=== PATIENT | male | born 1955 | race Caucasian/White ===

== ENCOUNTER → 2018-05-05 09:48 | Outpatient (CLI) | payer BC, SELFPAY ==
[2018-05-05 11:38] LABS: Anion Gap 7.8 mmol/L (3-11); BUN 18 mg/dL (7-18); CO2 29.2 mmol/L (21.0-32.0); CREATININE 0.81 mg/dL (0.70-1.30); Calcium 8.7 mg/dL (8.5-10.1); Chloride 101 mmol/L (98-107); Cholesterol 227 mg/dL (50-200); Glucose 80 mg/dL (70-100); HDL Cholesterol 68 mg/dL (40-60); LDL CHOLESTEROL 150 mg/dL (<100); Potassium 5.3 mmol/L (3.5-5.1); Sodium 138 mmol/L (136-145); Triglyceride 67 mg/dL (30-150)
== END ==
PROVIDERS: PCP Family Medicine; Visit Provider Family Medicine
DX: Z00.00 Encounter for general adult medical examination without abnormal findings (principal); Z13.220 Encounter for screening for lipoid disorders; Z13.228 Encounter for screening for other metabolic disorders
CPT/HCPCS: 36415; 80048; 80061; 83721

== ENCOUNTER 2018-07-04 07:47 | Day surgery (SDC) | payer BC, SELFPAY ==
--- NOTE | 2018-07-04 06:10 | PDOC.DSDIS_ITS ---
Discharge Plan Disposition Patient Disposition: HOME Condition: Good Discharge Details Reason For Visit: Colonoscopy Attending Provider: Lakshmi Pike Primary Care Provider: Santosh Heaton Home Meds and New Rx's Prescriptions: Continue triamcinolone acetonide 15 GM cream 1 ea Topical BID Qty: 30 RF: 3 Discharge Instructions Instructions: Colonoscopy (DC), Colorectal Polyps (DC), Diverticulosis (DC) Additional Instructions: Findings: 25 polyps sigmoid diverticulosis Follow up: depends on final pathology New Medications: none Please call if you develop: fevers >101.5 Nausea or Vomiting Abdominal pain that is not transient 1. Because there will be medication in your system for the next 24 hours, you may feel a little sleepy. Your coordination will be affected. Therefore: a. Do not drive or operate dangerous equipment for 24 hours. b. Do not drink alcohol beverages for 24 hours (not even beer). c. Plan to go home and rest for the day. 2. Generally there are no restrictions on your activity after a day or so has gone by, but you may feel a bit fatigued for a few days. 3 After you arrive home you may have a light meal and return to a normal diet as you can tolerate it without feeling sick to your stomach. 4. After surgery, you may feel pain or discomfort. This should be only transient , but if it persists please contact your doctor. 5. If there are any questions regarding the findings of your procedure, please feel free to contact your doctor. 6. If you are unable to contact your doctor with a problem, contact the hospital at [phone]. 7. Continue all your regular medications unless directed otherwise. I understand the above instructions and have no questions. Signature of Patient or Responsible Adult Escort Date/Time Name of Responsible Adult Escort Signature of Nurse Date/Time Activity:: Activity as Tolerated Diet:: high fiber diet Discharge Orders Discharge Orders: Discharge Order (Routine); Ordered 07/04/18 Ordered By: Lakshmi Pike DS: Diagnosis Discharge Diagnosis (1) Diverticulosis large intestine w/o perforation or abscess w/o bleeding: Status: Acute (2) Colorectal polyp detected on colonoscopy: Status: Acute
--- NOTE | 2018-07-04 06:13 | W.COLOREPORT ---
Colonoscopy Report Date of procedure: 07/04/18 Pre-op diagnosis general: Colon Cancer Screening Post-op diagnosis procedure note: other (Sigmoid Diverticulosis/ 25 polyps from 15 cm to 3 cm) Procedure: Colonoscopy with polypectomy by hot snare and cold forceps Surgeon: Lakshmi Pike Anesthesia proc note operative: MAC (Chaitanya Argueta CRNA) Estimated blood loss (mL): 15 Pathology: other (25 polyps) Complications: None Disposition: same day Indications: Mr. Woodson is here today for a colonoscopy. Risks, benefits and complications were reviwed and he wished to proceed. No guarantees were given or implied. Prep: Miralax/Dulcolax Procedure Start Time: 08:40 Procedure End Time: 09:27 Retraction Time: 38 minutes Findings: Moderate diverticulosis of the sigmoid colon and 25 polyps from 2 to 15 cm. One pedunculated polyp at 10 cm. Procedure Description: After informed consent was obtained the patient was taken to the procedure room and placed in a left decubitous position. Monitors were applied and a time out was done. The patients name, date of , procedure, allergies to medications and metal in their body was reviewed. The patient was then sedated. Once sedated and comfortable a rectal exam was done. External exam was normal. Internal exam revealed a normal sphincter tone and no palpable masses. The prostate felt smooth. The scope was then introduced and retroflexed. No internal hemorrhoids were identified. The scope was then advanced to the cecum without difficulty. The TI and appendiceal orifice were identified. The prep was adequate. The scope was then slowly retracted over 38 minutes back into the rectum. 25 polyps were removed with cold forceps and hot snare. The scope was removed and the patient was woken up and taken back to Same day surgery in stable condition. The patient tolerated the procedure well and there were no immediate complications. Follow up: Follow up will depend on final pathology.
[2018-07-04 07:50] VITALS: BP 123/78; PULSE 60; RESP 17; TEMP 36.5; O2SAT 96
[2018-07-04] MEDS: Lactated Ringers 1,000 ML 80 ML IV (08:20)
--- NOTE | 2018-07-04 09:00 | BOWEL_PTH ---
PATIENT: John Woodson LOC: ANGI U#:[id number] AGE/SX: 63/M ROOM: RE07/04/[address]: Lakshmi Pike MD : 1955 BED: DIS: 07/04/2018 SPEC #: [id number] RECD: 07/04/18 12:41 STATUS: LYDIA REQ #: [id number] SHUBHAM: 07/04/18 09:[address]: Lakshmi Pike DEPT: Surgical Specimen RECD BY: Nori Garcia ENTERED: 07/04/18 12:43 SP TYPE: Bowel OTHR DR: Santosh Heaton MD Tissues: 1 - BIOPSY BOWEL 2 - BIOPSY BOWEL 3 - BIOPSY BOWEL Procedures: GROSS AND MICRO LEVEL 4 Comments: [id number]
[2018-07-04 09:59] VITALS: BP 125/78; PULSE 60; RESP 15; TEMP 36.1; O2SAT 98
== END 2018-07-04 10:15 | disposition home or self-care (01) ==
LOC: SUR 07:47
PROVIDERS: PCP Family Medicine; Visit Provider Surgery
PROC: 0DJD8ZZ Inspection of Lower Intestinal Tract, Via Natural or Artificial Opening Endoscopic (ICD-10-PCS; CPT 45378; principal; 2018-07-04 09:00)
DX: Z12.11 Encounter for screening for malignant neoplasm of colon (principal); D12.5 Benign neoplasm of sigmoid colon; D12.8 Benign neoplasm of rectum; K62.1 Rectal polyp; K57.30 Diverticulosis of large intestine without perforation or abscess without bleeding; Z86.010 Personal history of colon polyps
CPT/HCPCS: 45380; 45385; 88305; J2250; J3010

== ENCOUNTER 2019-05-11 10:09 | Outpatient (CLI) | payer BC, SELFPAY ==
--- NOTE | 2019-05-11 10:13 | DI.RAD_ITS ---
SYMPTOM/DIAGNOSIS: KNEE PAIN, M25.561 RIGHT KNEE: Three views. No priors. There is mild periarticular spurring of the posterior patella. The articular surfaces are otherwise well maintained. The bones are intact and normally mineralized. There is a moderate sized suprapatellar joint effusion. The soft tissues are otherwise unremarkable. IMPRESSION: Minimal arthritic changes of the right knee. Joint effusion. LEFT KNEE: Three views. There are no priors. The articular surfaces are well maintained. The bones are intact and normally mineralized. There is a small suprapatellar joint effusion. No radiopaque foreign bodies are seen in the soft tissues. IMPRESSION: No acute abnormality.
== END 2019-05-11 10:29 ==
PROVIDERS: PCP Family Medicine; Visit Provider Family Medicine
DX: M25.561 Pain in right knee (principal); M25.562 Pain in left knee; M25.461 Effusion, right knee; M25.462 Effusion, left knee; M17.11 Unilateral primary osteoarthritis, right knee
CPT/HCPCS: 73562

== ENCOUNTER 2021-05-21 16:29 | Outpatient (REF) | payer BC, SELFPAY ==
[2021-05-21 15:50] LABS: Hemoglobin A1C 5.5 % (<5.7)
[2021-05-21 15:54] LABS: Anion Gap 7.8 mmol/L (3-11); BUN 14 mg/dL (7-18); CO2 29.2 mmol/L (21.0-32.0); CREATININE 0.9 mg/dL (0.70-1.30); Calculated LDL 154 mg/dL (<100); Chloride 102 mmol/L (98-107); Cholesterol 222 mg/dL (<200); Glucose 98 mg/dL (74-106); HDL Cholesterol 58 mg/dL (40-60); Sodium 139 mmol/L (136-145); Triglyceride 53 mg/dL (<150)
[2021-05-21 23:29] LABS: PSA, Screening 4.2 ng/mL (0.0-4.5)
== END 2021-05-21 16:30 | disposition home or self-care (01) ==
LOC: LBN 16:29
PROVIDERS: PCP Nurse Practitioner Family; Visit Provider Nurse Practitioner Family
DX: E78.5 Hyperlipidemia, unspecified (principal); Z13.1 Encounter for screening for diabetes mellitus; Z12.5 Encounter for screening for malignant neoplasm of prostate; Z00.00 Encounter for general adult medical examination without abnormal findings
CPT/HCPCS: 80048; 80061; 84153; 83036

== ENCOUNTER 2022-03-19 09:13 | Day surgery (SDC) | payer BC, SELFPAY ==
--- NOTE | 2022-03-18 12:58 | W.COLOREPORT ---
Colonoscopy Report Date of procedure: 03/19/22 Pre-op diagnosis general: hx of mult TA. Villous at 10cm Post-op diagnosis procedure note: other (Colon polyps) Surgeon: Cally Ohara Anesthesia Type: General:No Airway Disposition: same day Prep: Miralax/Dulcolax Retraction Time: 30 Procedure Description: After informed consent was obtained the patient was taken to the procedure room and placed in a left decubitous position. Monitors were applied and a time out was done. The patients name, date of , procedure, allergies to medications and metal in their body was reviewed. The patient was then sedated. Once sedated and comfortable a rectal exam was done. External exam was normal. Internal exam revealed a normal sphincter tone and no palpable masses. The scope was then introduced and retrofelexed. No internal hemorrhoids were identified. The scope was then advanced to the cecum w/ moderte difficulty. The colon is very tortuos and spasmotic today. The TI and and appendiceal orifice were identified. He does have mult. polyps that are removed. There are x2 polyps at 80 cm. Both of these are 5 mm flat polyps and removed with cold biopsy forcep. There are 2 polyps at 70 cm. Both of these are 5 mm flat polyps and removed with a cold biopsy forcep. There are 3 polyps at 25 cm. these are all 5 mm , flat polyps and removed with cold biopsy forcep. There are 2 polyps in the rectum. Both of these are flat 5 mm polyps, and removed with a cold biopsy forcep. The prep was BBPS 2 in all segments for a total of 6. The scope was then slowly retracted over 30 minutes back into the rectum. All specimens are retrieved and no bleeding is noted. There were no diverticula visualized today. The scope was removed and the patient was woken up and taken back to Same day surgery in stable condition. The patient tolerated the procedure well and there were no immediate complications. Follow up: The patient should follow up in 3-5 years, path pending, unless they develop changes in bowel habits or other new gastrointestinal complaints.
--- NOTE | 2022-03-18 12:59 | PDOC.DSDIS_ITS ---
Discharge Plan Disposition Patient Disposition: HOME Condition: Good Discharge Details Reason For Visit: colon scope Attending Provider: Cally Ohara Primary Care Provider: Lidia Willard Home Meds and New Rx's Prescriptions: Continued triamcinolone acetonide 0.1 % cream 1 applic Topical BID PRNQty: 30 Rx Instructions: Apply to arms Discontinued bisacodyl [Dulcolax (bisacodyl)] 5 mg tablet,delayed release (DR/EC) 5 mg PO ONCE Qty: 4 0RF Rx Instructions: Take according to provider's instructions for colonoscopy prep. polyethylene glycol 3350 17 gram/dose powder 17 g PO ONCE Qty: 238 0RF Rx Instructions: To be taken as directed by prescriber's office for colonoscopy prep. Discharge Instructions Additional Instructions: DSU Colonoscopy Post- Op Instructions Instructions for Everyone who is given Anesthesia: For your safety, please do the following for the next twenty-four (24) hours: *Do Not operate a motor vehicle (car, truck, motorcycle, etc.) *Do Not drink alcoholic beverages or use any recreational drugs for the first 24 hours or while taking pain medications. The medications in your body may have a reaction that can be dangerous. *Do Not make any important decisions or sign any important papers. Findings: Follow up: 1. No lifting over 20 pounds or strenuous activity for the first 24 hours after your procedure. After 24 hours there are no restrictions on your activity but you may feel fatigued for a few days. 2. After you arrive home you may have a light meal and return to your normal diet as you can tolerate it without feeling sick to your stomach. 3. You may have a bloated, gaseous feeling in your belly (abdomen) after a colonoscopy. Passing gas and belching will help. Walking or lying down on your left side with your knees flexed may relieve the discomfort. Call the office at [phone] (Office) or [phone] (Hospital) right away if you notice any of the following: a.Vomiting of blood or ?coffee ground stools?. b.Rectal bleeding 1Tbsp, blood clots or continuous bleeding. c.Severe belly (abdominal) pain. d.A hard distended belly (abdomen) and an inability to pass gas. 4. Please don?t expect to have a normal BM (bowel movement) for 2-3 days after your procedure. 5. If there are questions regarding the findings of your procedure, please c ontact your doctor 6. If you are unable to contact your doctor with a problem, contact the hospital at [phone]. 7. Continue all your regular medications unless directed otherwise. I understand the above instructions and have no questions. Signature of Patient or Adult Escort Name of Responsible Adult Escort Signature of Nurse Date/Time Activity:: See above Diet:: See above Discharge Orders Discharge Orders: Discharge Order (Routine); Ordered 03/18/22 Ordered By: Cally Ohara
--- NOTE | 2022-03-18 13:01 | W.COLOREPORT ---
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 Monitors were applied and a time out was done. The patients name, date of , procedure, allergies to medications and metal in their body was reviewed. The patient was then sedated. Once sedated and comfortable a rectal exam was done. External exam was normal. Internal exam revealed a normal sphincter tone and no palpable masses. The prostate []. The scope was then introduced and retrofelexed. [] internal hemorrhoids were identified. The scope was then advanced to the cecum [] difficulty. The TI and appendiceal orifice were identified. The prep was []. The scope was then slowly retracted over [] minutes back into the rectum. Polyps were removed at []. The scope was removed and the patient was woken up and taken back to Same day surgery in stable condition. The patient tolerated the procedure well and there were no immediate complications. Follow up: The patient should follow up in [] years unless they develop changes in bowel habits or other new gastrointestinal complaints.
[2022-03-19] MEDS: Lactated Ringers 1,000 ML 80 ML IV (10:03)
--- NOTE | 2022-03-19 10:16 | W.ANESPRE ---
General Info Date of Service Date Performed: 03/19/22 Height: 6 ft Weight: 87 kg Body Mass Index (BMI): 25.9 Surgical Procedure: Operation Date: 03/19/22 10:05 Proposed Procedure Side Surgeon p Colonoscopy Cally Ohara DO Meds Allergies and Home Medications Allergies Allergy/AdvReac Type Severity Reaction Status Date / Time Penicillins Allergy Intermediate Swelling/Ed Verified 03/19/22 09:34 tressa Home Medication Medication Instructions Recorded triamcinolone acetonide 0.1 % 1 applic topical BID PRN #30 grams 05/11/19 topical cream multivitamin with minerals-folic 1 tab PO DAILY 03/19/22 acid 200 mcg chewable tablet (Multivitamin Gummies) Current Visit Medications: Current Medications Generic Name Dose Route Start Last Admin Trade Name Freq PRN Reason Stop Dose Admin Hyoscyamine Sulfate 0.125 mg 03/18/22 12:55 Hyoscyamine 0.125 Mg Sl/Oral/Chew SL DIRECTED PRN Ringer's Solution 1,000 mls @ 80 mls/hr 03/19/22 06:00 03/19/22 10:03 IV 04/17/22 23:59 80 mls/hr INFUSION JOSIAH Administration IV Miscellaneous Supplies 1 each 03/19/22 06:00 Iv Access IV 04/17/22 23:59 DIRECTED JOSIAH Ondansetron HCl 4 mg 03/18/22 12:55 Ondansetron 4 Mg/2 Ml Vial IVP Q4H PRN PRN Nausea / Vomiting Sodium Chloride 0 ml 03/19/22 06:00 Normal Saline Flush 10 Ml Syr IV 04/17/22 23:59 PRN PRN Sodium Chloride 0 ml 03/19/22 06:00 Normal Saline 10 Ml Vial IJ 04/17/22 23:59 DIRECTED PRN Sterile Water 0 ml 03/19/22 06:00 Water,Injection,Sterile 10 Ml Vial IJ 04/17/22 23:59 DIRECTED PRN PFSH Active Problems Active Problems: Problem Status Onset Code Screening for colon cancer Z12.11 Alcohol use disorder Medical History Medical History COPD (chronic obstructive pulmonary disease) Hyperlipidemia Osteoarthritis of both knees Sigmoid diverticulosis Surgical History Surgical History S/P colonoscopy (07/04/18) S/P vasectomy Tobacco Smoking/Tobacco Use Status: Former Tobacco Use Passive smoking exposure: Yes Second hand exposure: Yes Alcohol Alcohol Intake: current Alcohol intake frequency: 0-2 drinks per day Alcohol type: beer Substance Use Substance use: Rarely Substance use type: marijuana Vital Signs and Lab Results Lab Results Blood Type / Crossmatch: No Data to Display Complete Blood Count: No Data to Display Complete Metabolic Panel: No Data to Display Liver Function Panel: No Data to Display Coagulation Panel: No Data to Display Cardiac Panel: No Data to Display Arterial Blood Gas: No Data to Display Venous Blood Gas: No Data to Display Pancreas Panel: No Data to Display Thyroid Panel: No Data to Display Infectious Disease: No Data to Display Blood Cultures: No Data to Display Toxicology Panel: No Data to Display Anesthesia Assessment and Plan Anesthesia History Personal History: No History of Anesthesia Complications Family History: No Family History of Anesthesia Complications Exercise Tolerance Exercise Tolerance: Metabolic Equivalents>4 Pertinent Negatives Pertinent Negatives: No Symptoms of GERD, No Major Cardiovascular Symptoms or Complaints and No Major Pulmonary Symptoms or Complaints Cardiac & Pulmonary Exam Cardiac Exam: Normal S1/S2 Heart Sounds Pulmonary Exam: Clear Bilateral Breath Sounds Implantable Cardiac Device Does patient have a Pacemaker or an ICD?: No Airway Exam Known Difficult Airway: No Mallampati Class: 2 Mouth Opening: Normal (> 3cm) Thyromental Distance: Greater than 3 cm Neck Range of Motion: Full ROM Neck Circumference: Normal Teeth Condition: Normal Dentition ASA Classification ASA Score: ASA 2 Emergency Case?: No NPO Status NPO Status: NPO Clears >2 hours, Solids >8 hours Anesthesia Plan Resuscitation Status: Full Code Anesthesia Technique: General Anesthesia Airway Planned: Natural Airway Monitors Used: Standard Monitors
[2022-03-19 10:18] VITALS: BMI 25.9
--- NOTE | 2022-03-19 10:48 | BOWEL_PTH ---
PATIENT: John Woodson LOC: ANGI U#:[id number] AGE/SX: 66/M ROOM: RE03/19/[address]: Cally Ohara : 1955 BED: DIS: 03/19/2022 SPEC #: [id number] RECD: 03/19/22 13:01 STATUS: LYDIA RE #: [id number] SHUBHAM: 03/19/22 10:[address]: Cally Ohara DEPT: Surgical Specimen RECD BY: Crystal Rogers ENTERED: 03/19/22 13:09 SP TYPE: Bowel OTHR DR: Lidia Willard, [employer] Tissues: 1 - BIOPSY BOWEL 2 - BIOPSY BOWEL 3 - STOMACH BIOPSY 4 - STOMACH BIOPSY 5 - ESOPHAGUS BIOPSY 6 - ESOPHAGUS BIOPSY 7 - BIOPSY BOWEL 8 - BIOPSY BOWEL 9 - BIOPSY BOWEL 10 - BIOPSY BOWEL Procedures: GROSS AND MICRO LEVEL 4 Comments: [id number]
[2022-03-19 11:51] VITALS: BP 123/77; PULSE 55; RESP 16; TEMP 36.1; O2SAT 96
--- NOTE | 2022-03-19 11:53 | W.ANESPOSTOP ---
Postoperative Evaluation Date, Time and Location Date Performed: 03/19/22 Time Performed: 11:53 Patient Location: Day Surgery Unit Vital Signs Most Recent Imported Vital Signs: Most Recent Vital Signs Temp Pulse Resp BP Pulse Ox 36.1 C L 55 L 16 123/77 96 03/19/22 11:51 03/19/22 11:51 03/19/22 11:51 03/19/22 11:51 03/19/22 11:51 Pain Score Most Recent Pain Score: Most Recent Pain Score Pain Level 0 03/19/22 11:51 Assessment Mental Status: Awake (Alert & Oriented to Patient Baseline) Airway and Respiratory Function: Patent airway with normal (patient baseline) respiratory exam Cardiovascular Function: Hemodynamically Stable Hydration Status: Adequately Hydrated Nausea & Vomiting: No Nausea or Vomiting Pain: Pt. Denies Any Pain Peripheral Nerve Block: Patient did not receive a nerve block
--- NOTE | 2022-03-19 12:07 | PDOC.DSDIS_ITS ---
Discharge Plan Disposition Patient Disposition: HOME Condition: Good Discharge Details Reason For Visit: colon scope Attending Provider: Cally Ohara Primary Care Provider: Lidia Willard Home Meds and New Rx's Prescriptions: New pantoprazole [Protonix] 40 mg tablet,delayed release (DR/EC) 40 mg PO DAILY Qty: 90 4RF Continued triamcinolone acetonide 0.1 % cream 1 applic Topical BID PRNQty: 30 Rx Instructions: Apply to arms Discontinued bisacodyl [Dulcolax (bisacodyl)] 5 mg tablet,delayed release (DR/EC) 5 mg PO ONCE Qty: 4 0RF Rx Instructions: Take according to provider's instructions for colonoscopy prep. polyethylene glycol 3350 17 gram/dose powder 17 g PO ONCE Qty: 238 0RF Rx Instructions: To be taken as directed by prescriber's office for colonoscopy prep. No Action Multivitamin Gummies 200 mcg Tablet,Chewable 1 tab PO DAILY Discharge Instructions Instructions: Colorectal Polyps (GEN), Duodenitis (GEN) Additional Instructions: DSU Colonoscopy Post- Op Instructions Instructions for Everyone who is given Anesthesia: For your safety, please do the following for the next twenty-four (24) hours: *Do Not operate a motor vehicle (car, truck, motorcycle, etc.) *Do Not drink alcoholic beverages or use any recreational drugs for the first 24 hours or while taking pain medications. The medications in your body may have a reaction that can be dangerous. *Do Not make any important decisions or sign any important papers. Findings: duodenitis Rx: protonix Continue with lifestyle modifications: no alcohol, tobacco products, Aspirin or NSAID's (ibuprofen, Motrin, Naprosyn, aleve, etc), soda pop/any carbonated beverages, caffeine (including tea & chocolate), and acidic foods, (tomatoes, citrus, onions, peppermints) spicy or fried/fatty foods. Do not lie down for 30 minutes after eating, and do not eat 2 hours prior to bedtime. Avoid wearing tight fitting clothing/ belts. Try to limit caffeine/coffee intake for the next 2 weeks. Do not drink coffee on an empty stomach. -My office will send a letter in 2 to 3 weeks time with the results of the biopsies. colon polype Follow up: THREE yrs time 1. No lifting over 20 pounds or strenuous activity for the first 24 hours after your procedure. After 24 hours there are no restrictions on your activity but you may feel fatigued for a few days. 2. After you arrive home you may have a light meal and return to your normal diet as you can tolerate it without feeling sick to your stomach. 3. You may have a bloated, gaseous feeling in your belly (abdomen) after a colonoscopy. Passing gas and belching will help. Walking or lying down on your left side with your knees flexed may relieve the discomfort. Call the office at [phone] (Office) or [phone] (Hospital) right away if you notice any of the following: a.Vomiting of blood or ?coffee ground stools?. b.Rectal bleeding 1Tbsp, blood clots or continuous bleeding. c.Severe belly (abdominal) pain. d.A hard distended belly (abdomen) and an inability to pass gas. 4. Please don?t expect to have a normal BM (bowel movement) for 2-3 days after your procedure. 5. If there are questions regarding the findings of your procedure, please contact your doctor 6. If you are unable to contact your doctor with a problem, contact the hospital at [phone]. 7. Continue all your regular medications unless directed otherwise. I understand the above instructions and have no questions. Signature of Patient or Adult Escort Name of Responsible Adult Escort Signature of Nurse Date/Time Stand Alone Forms: Anesthesia Discharge Inst., Armando Caruso (DSU) Activity:: See above Diet:: See above Discharge Orders Discharge Orders: Discharge Order (Routine); Ordered 03/18/22 Ordered By: Cally Ohara
[2022-03-19 12:30] VITALS: BP 139/92; PULSE 55; RESP 16; TEMP 36.1; O2SAT 96
--- NOTE | 2022-03-19 21:51 | ENDO_ITS ---
Date of service: 03/19/22 Time of Service: 09:30 Endoscopy Report DATE OF PROCEDURE: 03/19/22 PRE-OP DIAGNOSIS: epigastric pain POST-OP DIAGNOSIS: other (duodenitis) SURGEON: Cally Ohara ANESTHESIA TYPE: General:No Airway ESTIMATED BLOOD LOSS: 0 PATHOLOGY: other COMPLICATIONS: None DISPOSITION: no change PROCEDURE DESCRIPTION: After informed consent was obtained the patient was take to the procedure room and placed in a supine position. Monitors were applied and a time out was done. The patients name, date of , procedure type, allergies to medications and metal in their body was reviewed. A bite block was placed and the patient was sedated. Once sedated and comfortable the gastroscope was advanced through the oropharynx which was grossly normal into the esophagus. The proximal and mid- esophagus were nl in the distal esophagus, there is no colon esophageal erosions, varices, diverticula, or stricture visualized today. There is no hiatal hernia. The scope was advanced into the stomach and through the pylorus into the 3rd portion of the duodenum. The duodenum was noted to be moderate erythema and erythema. Biopsies are taken of the bulb and D2. All specimens are retrieved and no bleeding is noted. The scope was retracted back into the stomach and biopsies were done to rule out H. pylori. There were no ulcers. The scope was retroflexed. The cardia and fundus were noted to be normal. There no hiatal hernia noted. The scope was retracted back into the esophagus and biopsies were done of the GE junction to rule out Durbin's. The Z line was regular. The GE junction was at 40 cm/in the distal esophagus at 38. Biopsy was taken from this area as well. The scope was removed and the patient was woken up and taken back to [facility] in stable condition. Follow up: Patient will be started on Protonix We reviewed lifestyle modifications Continue with lifestyle modifications: no alcohol, tobacco products, Aspirin or NSAID's (ibuprofen, Motrin, Naprosyn, aleve, etc), soda pop/any carbonated beverages, caffeine (including tea & chocolate), and acidic foods, (tomatoes, citrus, onions, peppermints) spicy or fried/fatty foods. Do not lie down for 30 minutes after eating, and do not eat 2 hours prior to bedtime. Avoid wearing tight fitting clothing/ belts My office will send a letter in 2 to 3 weeks time with the biopsy results
== END 2022-03-19 13:03 | disposition home or self-care (01) ==
PROVIDERS: PCP Nurse Practitioner Family; Visit Provider Surgery
PROC: 0DJD8ZZ Inspection of Lower Intestinal Tract, Via Natural or Artificial Opening Endoscopic (ICD-10-PCS; CPT 45378; principal; 2022-03-19 10:00)
DX: Z12.11 Encounter for screening for malignant neoplasm of colon (principal); Z86.010 Personal history of colon polyps; K63.5 Polyp of colon; K62.1 Rectal polyp; K29.80 Duodenitis without bleeding; K22.89 Other specified disease of esophagus; K31.89 Other diseases of stomach and duodenum; K63.89 Other specified diseases of intestine
CPT/HCPCS: 45380; 43239; 88305; J2704

== ENCOUNTER 2023-06-02 02:23 | Outpatient (CLI) | payer BC, SELFPAY ==
[2023-06-02 12:31] LABS: Hemoglobin A1C 5.4 % (<5.7)
[2023-06-02 12:32] LABS: Abs Immature Grans 0.02 10^3/uL (0.0-0.06); Absolute Basophil Count 0.12 10^3/uL (0.0-0.2); Absolute Eosinophil Count 0.26 10^3/uL (0.0-0.7); Absolute Lymphocyte Count 1.93 10^3/uL (1.2-3.4); Absolute Monocyte Count 0.85 10^3/uL (0.1-0.8); Absolute Neutrophil Count 4.83 10^3/uL (1.2-6.7); Basophils % 1.5; Eosinophils % 3.2; HCT 45.7 % (40.0-50.0); HGB 14.8 g/dL (13.5-17.5); Immature Grans % 0.2; Lymphocytes % 24.1; MCH 29.2 pg (27.0-33.0); MCHC 32.4 % (32.0-36.0); MCV 90 fL (80-95); MPV 10.2 fL (8.0-11.0); Monocytes % 10.6; Neutrophils % 60.4; Platelet Count 322 10^3/uL (130-400); RBC 5.07 10^6/uL (4.36-5.78); RDW 13.6 % (11.8-14.1); RDW-SD 45.1 fL; WBC 8.01 10^3/uL (4.4-10.8)
[2023-06-02 12:35] LABS: ALT 30 U/L (16-63); AST 15 U/L (15-37); Albumin 3.7 g/dL (3.4-5.0); Alkaline Phosphatase 70 U/L (46-116); BUN 19 mg/dL (7-18); Bilirubin, Total 0.5 mg/dL (0.2-1.0); Calcium 9.1 mg/dL (8.5-10.1); Chloride 101 mmol/L (98-107); Estimated GFR 83.01 (mL/min/1.73m2); Glucose 102 mg/dL (74-106); Potassium 4.3 mmol/L (3.5-5.1); Sodium 137 mmol/L (136-145); TSH (W/Ref FT4) 1.82 uIU/mL (0.36-3.74); Total Protein 7.8 g/dL (6.4-8.2)
[2023-06-02 19:39] LABS: PSA, Screening 4.9 ng/mL (<=4.5)
[2023-06-03 08:39] LABS: Hepatitis C Ab w Rflx HCV PCR Negative (Negative)
== END 2023-06-02 02:24 | disposition home or self-care (01) ==
LOC: LOS 02:23
PROVIDERS: PCP Nurse Practitioner Family; Visit Provider Nurse Practitioner Family
DX: Z00.00 Encounter for general adult medical examination without abnormal findings (principal); Z12.5 Encounter for screening for malignant neoplasm of prostate
CPT/HCPCS: 36415; 80053; 84153; 86803; 83036; 84443; 85025

== ENCOUNTER 2023-06-03 18:57 | Observation (INO) | payer BC, MEDICARE, SELFPAY ==
[2023-06-03] VITALS (16 sets, daily range): BP systolic 102–137; BP diastolic 63–88; PULSE 65–84; RESP 10–19; TEMP 36.6–37.2; O2SAT 93–97
--- NOTE | 2023-06-03 19:13 | ED.GENADUL_ITS ---
Discharge Plan Disposition Patient Disposition: Admit to [facility] Condition: Good Discharge Details Clinical Impression: Syncope, Face lacerations, Facial contusion Primary Care Provider: Lidia Willard ED Provider: Adryan Corcoran Meds and New Rx's Prescriptions: No Action Multivitamin Gummies 200 mcg Tablet,Chewable 1 tab PO DAILY Medical Decision Making Patient presents to ED status post syncopal event with facial injury. Patient was sitting on a chair and then found himself on the floor. He has no recollection of what exactly occurred. He sustained facial injury and lacerations. Denies feeling lightheaded, dizzy, short of breath, chest pain prior to the event. Has no real complaints other than facial pain and laceration now. Cervical spine is cleared clinically. EKG is sinus bradycardia otherwise normal. Given syncopal event without warning with significant injury consider cardiac arrhythmia. He is placed on the monitor. Will obtain CT head. Will obtain laboratory studies. Tetanus is updated. CT head is negative for acute traumatic injury. Lacerations are irrigated and explored. Sutured in interrupted fashion. Flap laceration tacked down loosely with good approximation. Laboratory studies fairly unremarkable with slightly elevated white count 12.7, normal hemoglobin, normal electrolytes and kidney function, alcohol level is 29. Do not believe his syncopal event was related to alcohol intoxication. He did smoke marijuana today as well but that is not uncommon. Still think overnight observation on a conveyor monitor is approp riate. Will discuss with hospitalist. Patient and aware of plan. Lab Data Lab results reviewed: Yes I reviewed the patient's lab results. ECG Data Attestation: I personally reviewed and interpreted this ECG (s) as follows: HPI General Mode of arrival: ambulatory . Date/Time Provider Initiated Documentation: 06/03/23 19:13 . Information obtained by: patient . HPI Narrative: Patient presents to ED after syncopal event with him striking his face against a chair. Patient reports sitting in a seat, next thing he knew he was waking up on the floor. Presumes he struck his face on a chair next to him. He reports no warning just waking up on the floor. He does admit to having 3 beers this afternoon between 3pm and 7pm. He reports elevated blood pressures as of recent. Denies any previous syncope. Denies any chest pain or shortness of breath. Does have lacerations to the left side of his face. He denies headache or neck pain. Denies any extremity pain or injury. Denies any nausea or vomiting. Related Data Home Medications Medication Instructions Recorded Confirmed multivitamin with minerals-folic 1 tab PO DAILY 03/19/22 06/03/23 acid 200 mcg chewable tablet (Multivitamin Gummies) Allergies Allergy/AdvReac Type Severity Reaction Status Date / Time Penicillins Allergy Intermediate Swelling/Ed Verified 06/03/23 19:14 tressa Review of Systems Narrative: Per HPI PFSH All Active Problems (Updated 06/03/23 @ 20:57 by Adryan Corcoran MD) Syncope (Chronic) Face lacerations (Acute) Facial contusion (Acute) Tubular adenoma of colon (Acute) Tubulovillous adenoma of colon (Acute) Osteoarthritis of both knees (Chronic) Alcohol use disorder (Chronic) Sigmoid diverticulosis (Chronic) Former cigarette smoker (Chronic) Chronic night sweats (Chronic) Elevated BP without diagnosis of hypertension (Chronic) Medical History COPD (chronic obstructive pulmonary disease) Hyperlipidemia Surgical History S/P colonoscopy (2021) S/P vasectomy Family History (Updated 05/30/23 @ 10:06 by Lidia Willard NP) Mother Stroke Father Testicular cancer Sister Breast cancer Sister Asthma Maternal Grandfather No problems noted. Paternal Grandfather No problems noted. Maternal Grandmother No problems noted. Paternal Grandmother No problems noted. Son No problems noted. Son No problems noted. Social History Smoking/Tobacco Use Status: Former Tobacco Use tobacco type: cigarettes Quit Date: 09/19/13 Pack-years: 40 Tobacco: How many years used: 40 Second Hand Exposure: Yes Smoking risk assessment performed?: Yes Alcohol Intake: current Alcohol Intake frequency: 0-2 drinks per day Alcohol type: beer Drug use: Rarely Substance use type: marijuana Household members: spouse Housing: house Communication Needs: Corrective Lenses Do you need help understanding health information?: Often Pets and animals: Yes Pets and animals: cat(s) and dog(s) Sexually active: Yes Do you think of yourself as: straight/heterosexual Current gender identity: male What is your relationship status?: How often do you talk on the phone with friends or family?: twice per week How often do you get together with friends or relatives?: twice per week Do you belong to any clubs or organized social groups?: no Panel score (0-1 are the most socially isolated patients): 2 What type of physical activity do you participate in: walking Duration: < 15 minutes/day Frequency: 5-6 times per week Alexandra/Alevism: No preference Special alexandra needs: No Seatbelt use: always Helmet use: No Drive intox or ride w/intox corrugated fastener driver: No Do you feel safe at home: Yes Do you feel safe in your relationship?: Yes Exam Narrative Exam Narrative: Const: WDWN male in NAD. HEENT: NC. 1 cm linear laceration lateral left eyebrow. 2.5 cm flap laceration to left upper cheek. No facial bony tenderness. Eyes: Normal lids. PERRL and EOMI. Neck: Supple. Trachea midline. No cervical spine tenderness. Lungs: Normal respiratory effort. Lungs are clear. Cor: RRR without murmur/gallop. Good radial pulses. GI: Soft. NT/ND. Neuro: A+O x 3. Normal speech, mentation, gait. Cranial nerves II - XII grossly intact. No gross motor or sensory deficit. Ext: No C/C/E. Skin: Warm and dry. Procedures Laceration Laceration 1: Site: face Side (If applicable): left Size (cm): 1 Description: linear Depth: simple, single layer Local Anesthetic: Lidocaine 1% and with Epi Amount of anesthesia used (mL): 1 Pre-repair: wound explored, irrigated extensively and deep structures intact Skin layer closed with: nylon Size (cm): 6-0 Number of sutures: 4 Technique: simple, interrupted Laceration 2: Site: face Side (If applicable): left Size (cm): 2.5 Description: flap Depth: simple, single layer Local Anesthetic: Lidocaine 1% and with Epi Amount of anesthesia used (mL): 2 Pre-repair: wound explored, irrigated extensively and deep structures intact Skin layer closed with: nylon Size (cm): 6-0 Number of sutures: 8 Technique: simple, interrupted
--- NOTE | 2023-06-03 19:15 | DI.CT_ITS ---
Exam(s) CT HEAD WO EXAM: CT HEAD WO CLINICAL HISTORY: syncope, head/face injury. TECHNIQUE: Imaging Protocol: Axial computed tomography images with coronal and sagittal reformatted images were created and reviewed COMPARISON: No exams were available for comparison FINDINGS: Ventricles and Extra axial spaces: Normal in size and morphology for the patient's age. Hemorrhage: None. Cerebral parenchyma: No evidence of acute infarct or mass. Midline shift: None. Brainstem/Cerebellum: Normal. Calvarium: Normal. Visualized Paranasal sinuses/Mastoids: Clear. Soft Tissues: Small area of soft tissue swelling in the scalp both the posterior fossa. IMPRESSION: No acute intracranial process. RADIATION DOSE DELIVERED: Total DLP DATA REPOSITORY: All CT scans at this facility are submitted to the National Radiology Data Registry (NRDR) Dose Index Registry (DIR) with the [employer] (ACR). RADIATION OPTIMIZATION: All CT scans at this facility use at least one of these dose optimization te chniques: automated exposure control; mA and/or kV adjustment per patient size (includes targeted exa ms where dose is matched to clinical indication); or iterative reconstruction.
--- NOTE | 2023-06-03 19:15 | RT.EKG_ITS ---
APPROVED REPORT Exam: Resting ECG Reason for Exam: syncope Patient Location: E HR:68 bpm ECG Measurements Heart Rate 68 AXIS OK 172 P 51 QRSd 103 QRS 27 QT 391 T 30 QTc 417 Conclusion Sinus rhythm...normal P axis, V-rate 60- 99 Normal [place] Normal Electrocardiogram
[2023-06-03 19:54] LABS: Abs Immature Grans 0.05 10^3/uL (0.0-0.06); Absolute Lymphocyte Count 1.28 10^3/uL (1.2-3.4); Basophils % 0.8; Eosinophils % 0.8; HGB 14.1 g/dL (13.5-17.5); Immature Grans % 0.4; Lymphocytes % 10.1; MCH 29.1 pg (27.0-33.0); MCHC 32.8 % (32.0-36.0); MCV 89 fL (80-95); MPV 9.2 fL (8.0-11.0); Monocytes % 9.6; Neutrophils % 78.3; Platelet Count 292 10^3/uL (130-400); RBC 4.85 10^6/uL (4.36-5.78); RDW 13.3 % (11.8-14.1); RDW-SD 43.7 fL; WBC 12.66 10^3/uL (4.4-10.8)
[2023-06-03 19:57] LABS: Absolute Monocyte Count 1.22 10^3/uL (0.1-0.8); Absolute Neutrophil Count 9.91 10^3/uL (1.2-6.7)
[2023-06-03 20:10] LABS: ALT 32 U/L (16-63); AST 18 U/L (15-37); Albumin 3.4 g/dL (3.4-5.0); Alkaline Phosphatase 74 U/L (46-116); Anion Gap 4.8 mmol/L (3-11); BUN 13 mg/dL (7-18); Bilirubin, Total 0.3 mg/dL (0.2-1.0); CO2 29.2 mmol/L (21.0-32.0); Calcium 8.8 mg/dL (8.5-10.1); Chloride 101 mmol/L (98-107); ETHANOL BLOOD 28.7 mg/dL (<10); Estimated GFR 83.01 (mL/min/1.73m2); Glucose 92 mg/dL (74-106); Magnesium 2.1 mg/dL (1.8-2.4); Sodium 135 mmol/L (136-145); Total Protein 7.4 g/dL (6.4-8.2)
--- NOTE | 2023-06-03 20:28 | DI.VRAD_ITS ---
PROCEDURE INFORMATION: Exam: CT Head Without Contrast Exam date and time: 06/03/2023 7:58 PM Age: 68 years old Clinical indication: Syncope and collapse; Patient HX: Syncope, head/face injury TECHNIQUE: Imaging protocol: Computed tomography of the head without contrast. COMPARISON: No relevant prior studies available. FINDINGS: Brain: Cerebrum is unremarkable. Bustamante-white matter differentiation is intact. No mass lesion is seen. No mass effect or midline shift. Thalamus is unremarkable. No evidence of hemorrhage. Cerebellum is unremarkable. No posterior fossa mass lesion or mass effect. No pathologic edema. No evidence of cerebellar hemorrhage. Cerebral ventricles: No ventriculomegaly. Paranasal sinuses: Visualized sinuses are unremarkable. No fluid levels. Mastoid air cells: Visualized mastoid air cells are well aerated. Bones/joints: No evidence of fracture. Soft tissues: Unremarkable. IMPRESSION: No evidence of fracture. No evidence of acute intracranial bleed. Dictated and Authenticated by: Melanie Parr MD. Ordering:FIDEL Cornelius MD
--- NOTE | 2023-06-03 21:18 | HPE_ITS ---
Date of service: 06/03/23 Time of Service: 21:18 Assessment and Plan Assessment and plan (1) Syncope: Start date: 06/03/23 Status: Acute Assessment and plan: This is a 68-year-old gentleman who had a syncopal episode while sitting in chair at home injuring his left face with lacerations and contusing his right chest wall. He does not have any focal rib pain over his chest wall and imaging of the ribs can be performed in the morning if needed. He has no history of dysrhythmia but recently has been measuring blood pressure with been slightly high with systolic measurements. He does drink beer most days. He has never had alcohol withdrawal. He has never had seizures. He denies any history of DVTs and did take a long trip the day of admission but had no leg swelling. D- dimer will be checked in the morning, he is on DVT prophylaxis. Continue mo nitoring on color television console monitor with follow-up lab in the morning. Differentials include PE though unlikely, seizure disorder which does not appear to be consistent with presentation and cardiac dysrhythmia which will be at least watched overnight and should consider Zio patch. Outpatient cardiovascular and neurological work-up can be continued with PCP if he has no further episodes. Patient may need to stop drinking alcohol daily and eat more consistently. He is a full code. (2) Face lacerations: Start date: 06/03/23 Status: Acute Assessment and plan: Traumatic laceration left face cleaned and repaired by ED physician. Sutures will be removed in 7 days. Wound care. There were no sequela of bleeding or fractures with CT scan. (3) Contusion of right chest wall: Start date: 06/03/23 Status: Acute Assessment and plan: Tender over right anterior chest wall most likely secondary to fall with contusion with no bruising and imaging not performed though rib x-rays can be performed if this worsens. Increase ambulation and symptomatic treatment. (4) Alcohol use disorder: Status: Chronic Assessment and plan: Patient does drink beer most days and was advised that this could affect his blood pressure. He should try to decrease alcohol intake and to lose weight. (5) COPD (chronic obstructive pulmonary disease): Assessment and plan: Patient does carry history of COPD but has no treatment. As needed bronc hodilators while hospitalized with slight positive lung findings on exam. (6) Elevated BP without diagnosis of hypertension: Status: Chronic Assessment and plan: Patient blood pressure is stable thus far in his hospital stay and this could be secondary to daily alcohol use. Patient should decrease alcohol intake and lose weight with better diet. Monitor while hospitalized. Cardiac monitoring for arrhythmia which could be associated with the syncopal episodes. History of Present Illness History of Present Illness Chief Complaint: Syncopal episode at home while sitting in chair Narrative: This is a 68-year-old male patient who is on no chronic medical therapy recently has been checking blood pressure at the request of his PCP. He does have beer and had 3 beers today which is not unusual and also took a trip to [place] which is a longer trip than his usual but has no swelling in his calves or legs and no leg pain. He was at home waiting for his to bring dinner home at which time he was sitting down and the next thing he remembers he awakened on the floor with soreness over his right chest and over his left face where he had lacerations on the face. Lacerations were repaired in the ED. One was a flap laceration over the left malar area and a linear laceration lateral to the left eyebrow. CT of the head showed no acute fractures or bleeding. Patient had no focal neurological complaints and presumed that he did hit his head on a chair but is not sure why his chest hurts over the right anterior aspect. There is no bruising. He is not on aspirin or anticoagulation only takes multivitamin daily. Blood pressure measurements have been up-and-down with systolics between 150 and 170 and is that he does drink alcohol most days in the form of beer. At the time I saw the patient he was awake and in no distress recollecting his day except for the incident of syncope where he was sitting the chair and then awakened on the floor. He is a full code. Review of Systems Narrative: 13 point review of systems otherwise unrevealing or stable. Patient has had no leg swelling and no history of DVTs in the past. He denies any chest pain other than his chest wall pain from his fall. He does have elevated blood pressure reading but is not on medical therapy and denies any dizziness or syncopal episodes in the past. He has had no seizures in the past. PFSH All Active Problems (Updated 06/04/23 @ 01:19 by Chaitanya Diaz) Contusion of right chest wall (Acute) Syncope (Acute) Face lacerations (Acute) Tubular adenoma of colon (Acute) Tubulovillous adenoma of colon (Acute) Osteoarthritis of both knees (Chronic) Alcohol use disorder (Chronic) Sigmoid diverticulosis (Chronic) Former cigarette smoker (Chronic) Chronic night sweats (Chronic) Elevated BP without diagnosis of hypertension (Chronic) Medical History (Updated 06/04/23 @ 01:19 by Chaitanya Diaz) COPD (chronic obstructive pulmonary disease) Hyperlipidemia Surgical History S/P colonoscopy (2021) S/P vasectomy Family History Mother Stroke Father Testicular cancer Sister Breast cancer Sister Asthma Maternal Grandfather No problems noted. Paternal Grandfather No problems noted. Maternal Grandmother No problems noted. Paternal Grandmother No problems noted. Son No problems noted. Son No problems noted. Social History Smoking/Tobacco Use Status: Former Tobacco Use tobacco type: cigarettes Quit Date: 09/19/13 Pack-years: 40 Tobacco: How many years used: 40 Second Hand Exposure: Yes Smoking risk assessment performed?: Yes Alcohol Intake: current Alcohol Intake frequency: 0-2 drinks per day Alcohol type: beer Drug use: Rarely Substance use type: marijuana Household members: spouse Housing: house Communication Needs: Corrective Lenses Do you need help understanding health information?: Often Pets and animals: Yes Pets and animals: cat(s) and dog(s) Sexually active: Yes Do you think of yourself as: straight/heterosexual Current gender identity: male What is your relationship status?: How often do you talk on the phone with friends or family?: twice per week How often do you get together with friends or relatives?: twice per week Do you belong to any clubs or organized social groups?: no Panel score (0-1 are the most socially isolated patients): 2 What type of physical activity do you participate in: walking Duration: < 15 minutes/day Frequency: 5-6 times per week Alexandra/Tenriism: No preference Special alexandra needs: No Seatbelt use: always Helmet use: No Drive intox or ride w/intox coach driver: No Do you feel safe at home: Yes Do you feel safe in your relationship?: Yes Meds Allergies and Home Medications Allergies Allergy/AdvReac Type Severity Reaction Status Date / Time Penicillins Allergy Intermediate Swelling/Ed Verified 06/03/23 19:14 [facility] Home Medications Medication Instructions Recorded Confirmed Type multivitamin with minerals-folic 1 tab PO DAILY 03/19/22 06/03/23 History acid 200 mcg chewable tablet (Multivitamin Gummies) Exam Narrative Exam Narrative: General: Patient appears appropriate for age, alert and oriented x3 and in no acute distress. He is lying in bed comfortably. HEENT: Normocephalic, traumatic face with laceration over left face lateral to the eyebrow and a linear laceration which is sutured and dry as well as a crescent shaped flap laceration lateral to the left malar area which is sutured and dry. Eyes with pupils equal react light symmetrically, extraocular movement tachycardia sclera anicteric. Oropharynx with moist mucosa and fair dentition. Neck: Supple without JVD. Back: Slightly kyphotic with no CVA tenderness. Lungs: Bronchovesicular breath sounds diffusely with no focalizing rales or rhonchi. Fair aeration. Heart: Regular rate and rhythm with no peripheral murmur or gallop. Breast: Exam deferred. Abdomen: Mildly obese contour, soft nontender to palpation with no palpable hepatosplenomegaly. Bowel sounds positive all quadrants. Continue/rectal: Exam deferred. Extremity: Without clubbing, cyanosis or pitting edema. Negative Homans' sign bilaterally. Good cap refill with pulses intact. Skin: Actinic changes over sun exposed areas, otherwise normal color, warm and dry. Normal turgor. Neuro: Cranial nerves II through XII gross intact, no focal motor deficits. No tremor. Psych: Normal affect and mood. No abnormal thought processes. Remote and recent memory intact. Results Imaging Imaging Studies: Exam: CT Head Without Contrast Exam date and time: 06/03/2023 7:58 PM Age: 68 years old Clinical indication: Syncope and collapse; Patient HX: Syncope, head/face injury TECHNIQUE: Imaging protocol: Computed tomography of the head without contrast. COMPARISON: No relevant prior studies available. FINDINGS: Brain: Cerebrum is unremarkable. Bustamante-white matter differentiation is intact. No mass lesion is seen. No mass effect or midline shift. Thalamus is unremarkable. No evidence of hemorrhage. Cerebellum is unremarkable. No posterior fossa mass lesion or mass effect. No pathologic edema. No evidence of cerebellar hemorrhage. Cerebral ventricles: No ventriculomegaly. Paranasal sinuses: Visualized sinuses are unremarkable. No fluid levels. Mastoid air cells: Visualized mastoid air cells are well aerated. Bones/joints: No evidence of fracture. Soft tissues: Unremarkable. IMPRESSION: No evidence of fracture. No evidence of acute intracranial bleed. Labs 06/03/23 19:45 06/03/23 19:45 Labs: Laboratory Results - last 24 hr 06/03/23 06/03/23 19:45 19:45 WBC 12.66 H RBC 4.85 Hgb 14.1 Hct 43.0 MCV 89 MCH 29.1 MCHC 32.8 RDW 13.3 Plt Count 292 MPV 9.2 Immature Gran % 0.4 Neutrophils % 78.3 Lymphocytes % 10.1 Monocytes % 9.6 Eosinophils % 0.8 Basophils % 0.8 Nucleated RBC % 0.0 Absolute Neutrophils 9.91 H Absolute Lymphocytes 1.28 Absolute Monocytes 1.22 H Absolute Eosinophils 0.10 Absolute Basophils 0.10 Sodium 135 L Potassium 4.0 Chloride 101 Carbon Dioxide 29.2 Anion Gap 4.8 BUN 13 Creatinine 1.0 Est GFR (CKD-EPI 2020) 83.01 Glucose 92 Calcium 8.8 Magnesium 2.1 Total Bilirubin 0.3 AST 18 ALT 32 Alkaline Phosphatase 74 Total Protein 7.4 Albumin 3.4 Ethyl Alcohol 28.7 H Last Vital Signs Temp 36.6 C 06/03/23 19:08 Pulse 84 06/03/23 19:08 Resp 16 06/03/23 19:08 BP 102/63 06/03/23 19:08 Pulse Ox 93 06/03/23 19:08 Time Spent Time spent with Patient: >75 minutes Time was spent: preparing to see the patient(eg.review tests), obtaining and/or reviewing separately otained hiistory, ordering medications,tests, procedures, referring, communicating with other health urgent care, indepentently interpreting results, counseling the patient and care coordination
[2023-06-03] MEDS: Tetanus & Diphtheria Tox,ADULT 0.5 ML VIAL IM (21:29)
[2023-06-03 21:55] LABS: TSH (W/Ref FT4) 2.73 uIU/mL (0.36-3.74); Troponin I < 50 ng/L (<or=60)
[2023-06-03] MEDS: Heparin 5,000 UNITS/ML VIAL 5000 UNITS SC (23:02)
[2023-06-03] MEDS: Normal Saline Flush 10 ML SYR IVP (23:05)
[2023-06-04 01:46] LABS: Troponin I < 50 ng/L (<or=60)
[2023-06-04 02:24] VITALS: BP 125/71; PULSE 58; RESP 16; TEMP 37; O2SAT 94
[2023-06-04] MEDS: Acetaminophen 325 MG TAB PO (02:26)
[2023-06-04 06:30] VITALS: BP 129/71; PULSE 58; RESP 16; TEMP 36.6; O2SAT 97
[2023-06-04] MEDS: Heparin 5,000 UNITS/ML VIAL 5000 UNITS SC (06:33)
[2023-06-04 06:46] LABS: HCT 41.7 % (40.0-50.0); HGB 13.7 g/dL (13.5-17.5); MCH 28.9 pg (27.0-33.0); MCHC 32.9 % (32.0-36.0); MCV 88 fL (80-95); MPV 9.8 fL (8.0-11.0); Platelet Count 272 10^3/uL (130-400); RBC 4.74 10^6/uL (4.36-5.78); RDW 13.5 % (11.8-14.1); RDW-SD 43.8 fL; WBC 7.75 10^3/uL (4.4-10.8)
[2023-06-04 07:13] LABS: ALT 31 U/L (16-63); AST 16 U/L (15-37); Alkaline Phosphatase 66 U/L (46-116); Anion Gap 6.8 mmol/L (3-11); BUN 17 mg/dL (7-18); Bilirubin, Total 0.4 mg/dL (0.2-1.0); CO2 26.2 mmol/L (21.0-32.0); Calcium 8.8 mg/dL (8.5-10.1); Chloride 105 mmol/L (98-107); Estimated GFR 83.01 (mL/min/1.73m2); Glucose 103 mg/dL (74-106); Magnesium 2.1 mg/dL (1.8-2.4); Potassium 4.5 mmol/L (3.5-5.1); Sodium 138 mmol/L (136-145); Total Protein 6.6 g/dL (6.4-8.2)
[2023-06-04 07:21] LABS: D-Dimer 315 ng/mlFEU (<500)
[2023-06-04 07:30] LABS: Lab Add On Test DONE
[2023-06-04 07:49] LABS: Creatine Kinase 45 U/L (39-308)
[2023-06-04] MEDS: Multivitamin w/Minerals TAB 1 TAB PO (08:51)
[2023-06-04] MEDS: THIAMINE 100 MG in Normal Saline 100 ML 200 MG IVPB (10:08)
[2023-06-04 11:51] VITALS: BP 130/66; PULSE 50; RESP 17; TEMP 36.5; O2SAT 96
--- NOTE | 2023-06-04 15:20 | DSE_ITS ---
Date of service: 06/04/23 Time of Service: 15:20 DS: Diagnosis Discharge Diagnosis (1) Syncope: Status: Acute (2) Face lacerations: Status: Acute (3) Contusion of right chest wall: Status: Acute (4) Alcohol use disorder: Status: Chronic (5) COPD (chronic obstructive pulmonary disease): (6) Elevated BP without diagnosis of hypertension: Status: Chronic Discharge Plan Disposition Patient Disposition: Home Condition: Good Discharge Details Reason For Visit: Syncope Admit Date/Time: 06/03/23 21:19 Admit Provider: Chaitanya Diaz Attending Provider: Chaitanya Diaz Primary Care Provider: Lidia Willard Hospital Course Hospital Course: This is a 68-year-old male patient with past medical history of COPD, alcoholism and hyperlipidemia who presented to the [facility] ED for evaluation of a syncopal event with facial injury.? Patient was sitting on a chair and then found himself on the floor.? He has no recollection of what exactly occurred.? He sustained facial injury and lacerations.? Denied feeling lightheaded, dizzy, short of breath, or chest pain prior to the event.? Patient only complained of facial pain and laceration now.? Cervical spine was cleared clinically.? Head CT no acute intracranial process. EKG sinus bradycardia otherwise normal.?Tetanus was updated in ED. Patient had two areas sutured on left cheek. He was placed on observation status overnight for monitoring. His vital signs are stable. He had an uneventful night and was discharged to home with his , with a 30 day event monitor placed and an out patient transthoracic echocardiogram ordered, results to PCP. He was advised sutures should be removed in 7 days. Home Meds and New Rx's Prescriptions: No Action Multivitamin Gummies 200 mcg Tablet,Chewable 1 tab PO DAILY Discharge Instructions Instructions: Syncope (DC), Stitches Removal (DC), Holter Monitor (GEN), Transthoracic Echocardiogram (GEN) Additional Instructions: Sutures out in 7 days, keep laceration clean and dry. Someone from radiology will call you to schedule outpatient echocardiogram. Any chest pain, palpitations, lightheadedness, dizziness, return to the emergency department. Keep heart monitor on for 30 days. Follow directions provided and demonstration shown. Stand Alone Forms: Nursing Discharge Form Referrals: Lidia Willard NP [Primary Care Provider] - (Please call on Jay to make a follow up appointment for 1-2 weeks Outpatient echo ordered 30 day cardiac event monitor on discharge Sutures out in 7 days) Activity:: Activity as Tolerated Equipment/Supplies:: No Equipment Needed Diet:: As Tolerated Discharge Orders Discharge Orders: Discharge Order (Routine); Ordered 06/04/23 Ordered By: Onelia Pugh Other Ambulatory Orders: US echocardiogram (Routine) Location: None Selected Ordered By: Onelia Pugh Discharge Data Discharge Date/Time-TO BE ENTERED AT DEPARTURE: 06/04/23 16:18 DS: Summary Time Spent with Patient providing and/or coordinating discharge services: Greater than 30 minutes Status at Discharge Functional status at discharge: independent ambulation Overall status at discharge: patient is back to baseline Mental Status: mental status grossly normal Speech and Movement: speech and movement normal Mood: congruent mood Affect: normal affect Exam Narrative Exam Narrative: General: Patient appears appropriate for age, alert and oriented x3 and in no acute distress. He is lying in bed comfortably. HEENT: Normocephalic, traumatic face with laceration over left face lateral to the eyebrow and a linear laceration which is sutured and dry as well as a crescent shaped flap laceration lateral to the left malar area which is sutured and dry. Eyes with pupils equal react light symmetrically, extraocular movement tachycardia sclera anicteric. Oropharynx with moist mucosa and fair dentition. Neck: Supple without JVD. Back: Slightly kyphotic with no CVA tenderness. Lungs: Bronchovesicular breath sounds diffusely with no focalizing rales or rhonchi. Good aeration. Heart: Regular rate and rhythm with no peripheral murmur or gallop. Breast: Exam deferred. Abdomen: Flat, soft nontender to palpation with no palpable hepatosplenomegaly. Bowel sounds positive all quadrants. Extremity: Without clubbing, cyanosis or pitting edema. Negative Homans' sign bilaterally. Good cap refill with pulses intact. Skin: Normal color, warm and dry. Normal turgor. Neuro: Cranial nerves II through XII gross intact, no focal motor deficits. No tremor. Psych: Normal affect and mood. No abnormal thought processes. Remote and recent memory intact. Psych Mental Status: mental status grossly normal Speech and Movement: speech and movement normal Mood: congruent mood Affect: normal affect DS: Data Vitals/I&O Vitals and I&O: Vital Signs Temperature 36.5 C 06/04/23 11:51 Temperature Source Tympanic 06/04/23 11:51 Pulse 50 L 06/04/23 11:51 Pulse Rhythm Regular 06/04/23 08:54 Respiratory Rate 17 06/04/23 11:51 Respiratory Effort Normal, Non-Labored 06/04/23 08:54 Respiratory Depth Normal 06/04/23 08:54 Respiratory Pattern Normal 06/04/23 08:54 Blood Pressure 130/66 06/04/23 11:51 Blood Pressure Position Sitting 06/03/23 19:08 Pulse Oximetry 96 06/04/23 11:51 Oxygen Delivery Method Room Air 06/04/23 11:51 Oxygen Flow Rate 0 06/04/23 11:51 Pain Level 0 06/04/23 11:51 Intake & Output 06/03/23 06/04/23 06/04/23 23:59 11:59 23:59 Intake Total 641 / 1291 650 / 1291 Balance 641 / 1291 650 / 1291 Weight 88 kg Intake: IV 101 / 101 Oral 540 / 1190 650 / 1190 Other: Urine Color Yellow Urine Appearance Clear Comment void x1 Voiding Methods Toilet Data Completed and Pending Labs on day of discharge: Labs from last 24 hours 06/04/23 06/04/23 06/04/23 06:20 06:20 06:20 WBC RBC Hgb Hct MCV MCH MCHC RDW Plt Count MPV Immature Gran % Neutrophils % Lymphocytes % Monocytes % Eosinophils % Basophils % Nucleated RBC % Absolute Neutrophils Absolute Lymphocytes Absolute Monocytes Absolute Eosinophils Absolute Basophils D-Dimer 315 Sodium Potassium Chloride Carbon Dioxide Anion Gap BUN Creatinine Est GFR (CKD-EPI 2020) Glucose Calcium Magnesium Total Bilirubin AST ALT Alkaline Phosphatase Creatine Kinase 45 Troponin I Total Protein Albumin TSH Ethyl Alcohol Add-On Test Request DONE 06/04/23 06/04/23 06/04/23 06:20 06:20 01:15 WBC 7.75 RBC 4.74 Hgb 13.7 Hct 41.7 MCV 88 MCH 28.9 MCHC 32.9 RDW 13.5 Plt Count 272 MPV 9.8 Immature Gran % Neutrophils % Lymphocytes % Monocytes % Eosinophils % Basophils % Nucleated RBC % Absolute Neutrophils Absolute Lymphocytes Absolute Monocytes Absolute Eosinophils Absolute Basophils D-Dimer Sodium 138 Potassium 4.5 Chloride 105 Carbon Dioxide 26.2 Anion Gap 6.8 BUN 17 Creatinine 1.0 Est GFR (CKD-EPI 2020) 83.01 Glucose 103 Calcium 8.8 Magnesium 2.1 Total Bilirubin 0.4 AST 16 ALT 31 Alkaline Phosphatase 66 Creatine Kinase Troponin I < 50 Total Protein 6.6 Albumin 3.0 L TSH Ethyl Alcohol Add-On Test Request 06/03/23 06/03/23 06/03/23 19:45 19:45 19:45 WBC 12.66 H RBC 4.85 Hgb 14.1 Hct 43.0 MCV 89 MCH 29.1 MCHC 32.8 RDW 13.3 Plt Count 292 MPV 9.2 Immature Gran % 0.4 Neutrophils % 78.3 Lymphocytes % 10.1 Monocytes % 9.6 Eosinophils % 0.8 Basophils % 0.8 Nucleated RBC % 0.0 Absolute Neutrophils 9.91 H Absolute Lymphocytes 1.28 Absolute Monocytes 1.22 H Absolute Eosinophils 0.10 Absolute Basophils 0.10 D-Dimer Sodium 135 L Potassium 4.0 Chloride 101 Carbon Dioxide 29.2 Anion Gap 4.8 BUN 13 Creatinine 1.0 Est GFR (CKD-EPI 2020) 83.01 Glucose 92 Calcium 8.8 Magnesium 2.1 Total Bilirubin 0.3 AST 18 ALT 32 Alkaline Phosphatase 74 Creatine Kinase Troponin I < 50 Total Protein 7.4 Albumin 3.4 TSH 2.73 Ethyl Alcohol 28.7 H Add-On Test Request PFSH All Active Problems (Updated 06/04/23 @ 01:19 by Chaitanya Diaz) Contusion of right chest wall (Acute) Syncope (Acute) Face lacerations (Acute) Tubular adenoma of colon (Acute) Tubulovillous adenoma of colon (Acute) Osteoarthritis of both knees (Chronic) Alcohol use disorder (Chronic) Sigmoid diverticulosis (Chronic) Former cigarette smoker (Chronic) Chronic night sweats (Chronic) Elevated BP without diagnosis of hypertension (Chronic) Medical History (Updated 06/04/23 @ 01:19 by Chaitanya Diaz) COPD (chronic obstructive pulmonary disease) Hyperlipidemia Surgical History S/P colonoscopy (2021) S/P vasectomy Family History Mother Stroke Father Testicular cancer Sister Breast cancer Sister Asthma Maternal Grandfather No problems noted. Paternal Grandfather No problems noted. Maternal Grandmother No problems noted. Paternal Grandmother No problems noted. Son No problems noted. Son No problems noted. Social History Smoking/Tobacco Use Status: Former Tobacco Use tobacco type: cigarettes Quit Date: 09/19/13 Pack-years: 40 Tobacco: How many years used: 40 Second Hand Exposure: Yes Smoking risk assessment performed?: Yes Alcohol Intake: current Alcohol Intake frequency: 0-2 drinks per day Alcohol type: beer Drug use: Rarely Substance use type: marijuana Household members: spouse Housing: house Communication Needs: Corrective Lenses Do you need help understanding health information?: Often Pets and animals: Yes Pets and animals: cat(s) and dog(s) Sexually active: Yes Do you think of yourself as: straight/heterosexual Current gender identity: male What is your relationship status?: How often do you talk on the phone with friends or family?: twice per week How often do you get together with friends or relatives?: twice per week Do you belong to any clubs or organized social groups?: no Panel score (0-1 are the most socially isolated patients): 2 What type of physical activity do you participate in: walking Duration: < 15 minutes/day Frequency: 5-6 times per week Alexandra/Druze: No preference Special alexandra needs: No Seatbelt use: always Helmet use: No Drive intox or ride w/intox petroleum transport driver: No Do you feel safe at home: Yes Do you feel safe in your relationship?: Yes Time Spent with Patient Time Spent with Patient: 45-69 minutes Time was spent: preparing to see the patient(eg.review tests), ordering medications,tests, procedures, referring, communicating with other health home care consultant, indepentently interpreting results, counseling the patient and care coordination
== END 2023-06-04 16:18 | disposition home or self-care (01) ==
LOC: ER 21:41 → MS 22:07
PROVIDERS: Internal Medicine; Admitting Provider Family Medicine; Emergency Provider Emergency Medicine; PCP Nurse Practitioner Family; Visit Provider Family Medicine
DX: R55 Syncope and collapse (principal); S01.81XA Laceration without foreign body of other part of head, initial encounter; S20.211A Contusion of right front wall of thorax, initial encounter; J44.9 Chronic obstructive pulmonary disease, unspecified; F10.90 Alcohol use, unspecified, uncomplicated; R03.0 Elevated blood-pressure reading, without diagnosis of hypertension; W07.XXXA Fall from chair, initial encounter; F12.90 Cannabis use, unspecified, uncomplicated; K57.30 Diverticulosis of large intestine without perforation or abscess without bleeding; E78.5 Hyperlipidemia, unspecified; R61 Generalized hyperhidrosis; M17.0 Bilateral primary osteoarthritis of knee; Z87.891 Personal history of nicotine dependence
CPT/HCPCS: 12013; 36415; 80053; 82550; 85027; 90471; 93005; 99285; 70450; 80320; 83735; 84443; 84484; 85025; 85379; 93010; 99223; 99239; G0378; J1644

== ENCOUNTER 2023-06-04 15:19 | Outpatient (RCR) | payer BC, MEDICARE, SELFPAY | END 2023-06-18 23:59 | disposition home or self-care (01) | LOC: RT 15:19 | PROVIDERS: PCP Nurse Practitioner Family; Visit Provider Nurse Practitioner Family | DX: R55 Syncope and collapse (principal) | CPT/HCPCS: 93270 ==

== ENCOUNTER → 2023-06-22 03:00 | Outpatient (CLI) | payer BC, SELFPAY ==
--- NOTE | 2023-06-22 10:29 | DI.US_ITS ---
APPROVED REPORT EXAM: Comprehensive 2D, Doppler, and color-flow Echocardiogram Patient Location: Out-Patient Treating Machine Operator: Patricia Simmons RDCS (AE) Indications: Syncope Other Information Study Quality: Adequate Conclusion Normal left ventricular wall thickness and chamber size. Ejection fraction is 55 to 60%. Wall motio n is normal Normal right ventricular size and systolic function Both atria are normal in size Trileaflet aortic valve with trace regurgitation Right ventricular systolic pressure could not be estimated Wall motion Left Ventricle The left ventricle is normal size. The left ventricular systolic function is normal. The left ventric ular ejection fraction is within the normal range. There is normal left ventricular wall thickness. T here is normal LV segmental wall motion. There is no ventricular septal defect visualized. LVEF is 56 %. Right Ventricle The right ventricle is normal size. The right ventricular systolic function is normal. Atria The left atrium size is normal. The right atrium size is normal. The interatrial septum is intact wit h no evidence for an atrial septal defect. Aortic Valve The aortic valve is normal in structure. Aortic valve is trileaflet. There is no aortic valvular sten osis. Trace aortic regurgitation. Mitral Valve The mitral valve is normal in structure. No evidence of mitral valve stenosis. Trace mitral regurgita tion. Tricuspid Valve The tricuspid valve is normal in structure. There is no tricuspid valve stenosis. Trace tricuspid reg urgitation. Unable to assess PA pressure. Pulmonic Valve The pulmonary valve is normal in structure. There is no pulmonic valvular stenosis. Mild to moderate pulmonic regurgitation. Great Vessels The aortic root is normal in size. The ascending aorta is normal in size. Aortic arch is not well vis ualized. IVC is normal in size and collapses >50% with inspiration. Pericardium There is no pericardial effusion. 2D Dimensions IVSD d PLAX 0.72 cm M: 0.6-1.2 Ao Root d 2.95 cm M: 3.1 - 3.7 LVPW d PLAX 0.74 cm M: 0.6 - 1.2 Ao Asc Diam d 3.49 cm M: 2.6 - 3.4 LVID d PLAX 4.62 cm M: 4.2 - 5.8 LVDs 3.22 cm M: 2.5 - 4.0 LV EF Teichholz 57.6 % FS 30.20 % LV EDV (Teich) 98.2 mL LV ESV (Teich) 41.7 mL M-Mode TAPSE 2.16 cm (M/F) >1.7 Auto EF LV EDV A4C 180.6 mL LV EDV A2C 137.7 mL LV EDV BP 156.9 mL LV ESV A4C 80.1 mL LV ESV A2C 59.9 mL LV ESV BP 68.5 mL LVEF(%) A4C 55.6 % LVEF(%) A2C 56.5 % LVEF(%) BP 56.3 % LV SV A4C 100.5 ml LV SV A2C 77.8 ml LV SV BP 88.4 ml LV CO A4C 5.4 L/min LV CO A2C 3.9 L/min LV CO BP 4.6 L/min HR A4C 53.73 BPM HR A2C 50.07 BPM LV EDV Index (BP) LA Volume LA Length A4C 5.1 cm LA Length A2C 6.1 cm LA Area A4C s 16.15 cm2 LA Area A2C s 18.84 cm2 LA Vol A4C A-L 43.58 mL LA Vol A2C A-L 49.05 mL LA Vol Biplane A-L 50.8 mL LA Vol/BSA A4C A-L LA Vol/BSA A2C A-L LA Vol/BSA BP A-L 24.4 mL/m2 LA Vol A4C MOD 41.5 mL LA Vol A2C MOD 45.5 mL LA Vol BP MOD 47.7 mL RA Volume RA Area A4C 14.9 cm2 RA ESV A4C (A-L) 35.5mL RA Vol/BSA A4C A-L RA Length A4C 5.3 cm RA ESV A4C (MOD) 33.5mL LV Diastology MV E' medial 0.082 (>0.07 m/s) MV E Vmax 0.73 (0.4-1.3 m/s) MV E/E' MED 8.91 (<14) MV A Vmax 0.70 (0.4-1.3 m/s) MV E' lateral 0.104 (>0.1 m/s) E/A Ratio 1.0 MV E/E' LAT 7.01 (<14) MV E' Average 0.093 m/s MV E/E'(average) 7.84 Aortic Valve AoV Vmax 1.59 m/s LVOT Vmax 0.84 m/s AoV Peak Grad 37.4 mmHg LVOT Peak Grad 2.8 mmHg AoV Area (Vmax) 2.34 cm2 LVOT VTI 0.205 m AoV VTI 0.342 m LVOT Mean Grad 1.5 mmHg AoV Mean Kwame. 1.00 m/s LVOT SV 90.63 mL AoV Mean Grad 4.8 mmHg LVOT Diam s 2.35 cm AoV Area (VTI) 2.65 cm2 AV Regurg Peak Gr. 64.65 mmHg Velocity Ratio 0.53 AR Decel [place] 1.1m/sec2 AR DT 3505 msec AR PHT 1016 msec AR Vmax 4.02 m/s Mitral Valve MV DT 263 (160-240 msec) MV Vmax TIPS 0.69 m/s MV Mean Grad 0.8 (<2mmHg) MV VTI 0.281 m Pulmonary Valve PV Vmax 0.99 (0.5-1.5 m/s) RVOT Vmax 0.69 m/s PV Peak Grad 4.0 mmHg RVOT Peak Gr. 1.9 mmHg PV Mean Kwame 0.70 m/s RVOT VTI 0.173 m PV Mean Grad 2.3 mmHg RVOT Mean Gr. 1.0 mmHg Tricuspid Valve TV S' 0.14 m/s
== END ==
PROVIDERS: PCP Nurse Practitioner Family; Visit Provider Nurse Practitioner Family
DX: R55 Syncope and collapse (principal)
CPT/HCPCS: 93306

== ENCOUNTER → 2023-06-27 01:57 | Outpatient (CLI) | payer BC, SELFPAY ==
--- NOTE | 2023-06-27 06:45 | ETT_ITS ---
APPROVED REPORT Exam: Exercise Treadmill Patient Location: Out-Patient Room/Bed: Stress Nurse: Marija Barker RN Ordering Provider:NIESHA OBRIEN, Contact Number: [phone] BMI: 25.76 Baseline Rhythm: Sinus Bradycardia Indications: chest pain Medical History Medical History: HLD, COPD, Former smoker, ETOH Cardiac Medications: None Allergies: Penicillin Cardiac Risk Factors: COPD, HLD, Former smoker Previous Cardiac Procedures: Non Pretest Chest Pain Characteristics: None Exercise History: Sedentary Physical Disabilities: None Lung Sounds: Clear to auscultation Heart Sounds: Regular Stress Test Details Test: Exercise stress testing was performed using a John protocol. Rest Stress HR Resting HR Supine: 56 bpm Max Heart Rate (APMHR): 154 bpm Resting HR Standin bpm Target HR (85% APMHR): 131 bpm Max HR Achieved: 135 bpm % of APMHR: 88 Recovery HR: 73 bpm HR response to stress: Normal HR response to stress BP Resting BP Supine: 158/88 mmHg Resting BP Standin/82 mmHg Max BP: 188/88 mmHg Recovery BP: 142/82 mmHg BP response to stress: Normal blood pressure response to stress. ECG Resting ECG: Sinus Bradycardia Ectopy: rare PVC Stress ECG: Sinus Rhythm ST Change: No significant ST segment changes noted Arrhythmia: VPC's Comment: occassional PVCs Recovery ECG: Sinus Rhythm Recovery ST Change: No significant ST segment changes noted Recovery Arrhythmia: APC, VPC Clinical Reason for Termination: Fatigue Stress Symptoms: General Fatigue Exercise duration: 6 min21 sec Highest Stage Reached: Stage 3: 3.4 mph at 14% grade. Exercise capacity: 7.57 METs Hull Treadmill Score: 6 Rate Pressure Product: [id number] Stress ECG Conclusion 1. Resting electrocardiogram was within normal limits 2. Patient exercised on the John protocol and completed a workload of 7.57 METS, limited by fatigue 3. Normal heart rate and blood pressure response to exercise. The patient achieved 88% of predicted heart rate for age 4. There was no electrocardiographic evidence of myocardial ischemia 5. There were no significant dysrhythmias Hull Treadmill Score is 6 which is Low risk. Stress Test Summary STAGE Time (mins) Speed (mph) Grade (%) HR BP SpO2 SYMPTOMS METS Supine 56 158/88 Standing 58 134/82 1 3 1.7 10 120 180/92 98 4.5 2 6 2.5 12 129 188/88 95 7 1 min recovery 104 184/82 98 DIzzy 3 min recovery 75 144/78 98 dizziness resolved 6 min recovery 73 142/82
== END ==
PROVIDERS: PCP Nurse Practitioner Family; Visit Provider Nurse Practitioner Family
DX: R07.9 Chest pain, unspecified (principal)
CPT/HCPCS: 93017

== ENCOUNTER 2023-07-08 08:16 | Outpatient (CLI) | payer BC, SELFPAY ==
--- NOTE | 2023-07-08 08:42 | CER_ITS ---
Date of service: 07/08/23 Time of Service: 08:42 Cardiac Event Recorder Referring Provider:: Lidia Willard Indications:: Syncope Cardiac Event Note: This is a cardiac event monitor ordered for syncope. Patient was monitored for 28 days and 19 hours Rhythm throughout was sinus. Average heart rate was 62. Minimum was 42, maximum 122. there were rare PVCs There was no atrial fibrillation, no SVT, no high-grade AV block, no pauses gr eater than 3 seconds No patient symptoms were reported
== END 2023-07-08 08:17 | disposition home or self-care (01) ==
LOC: CARDOPNVT 08:16
PROVIDERS: PCP Nurse Practitioner Family; Visit Provider Internal Medicine Cardiovascular Disease
DX: R55 Syncope and collapse (principal)

== ENCOUNTER 2023-12-08 05:32 | Outpatient (CLI) | payer MEDICARE, BC, SELFPAY ==
[2023-12-08 18:05] LABS: PSA, Diagnostic 6.3 ng/mL (<=4.5)
== END 2023-12-08 05:33 | disposition home or self-care (01) ==
LOC: LBO 05:34
PROVIDERS: PCP Nurse Practitioner Family; Visit Provider Urology
DX: R97.20 Elevated prostate specific antigen [PSA] (principal)
CPT/HCPCS: 36415; 84153

== ENCOUNTER → 2023-12-15 10:21 | Outpatient (BNVA) | payer MEDICARE, BC, SELFPAY | PROVIDERS: PCP Nurse Practitioner Family; Referring Provider Nurse Practitioner Family; Visit Provider Nurse Practitioner Gerontology | DX: N40.1 Benign prostatic hyperplasia with lower urinary tract symptoms (principal); R97.20 Elevated prostate specific antigen [PSA]; R39.12 Poor urinary stream | CPT/HCPCS: 99213 ==

== ENCOUNTER → 2024-01-30 12:42 | Outpatient (BNVA) | payer MEDICARE, BC, SELFPAY | PROVIDERS: PCP Nurse Practitioner Family; Referring Provider Nurse Practitioner Family; Visit Provider Nurse Practitioner Gerontology | DX: N40.1 Benign prostatic hyperplasia with lower urinary tract symptoms (principal); R97.20 Elevated prostate specific antigen [PSA] | CPT/HCPCS: 99213 ==

== ENCOUNTER → 2025-07-04 13:58 | Outpatient (BNVA) | payer MEDICARE, SELFPAY | PROVIDERS: PCP Nurse Practitioner Family; Referring Provider Nurse Practitioner Family; Visit Provider Physical Therapy Assistant | DX: Z12.11 Encounter for screening for malignant neoplasm of colon (principal); Z86.0102 Personal history of hyperplastic colon polyps; Z86.0101 Personal history of adenomatous and serrated colon polyps; Z86.0109 Personal history of other colon polyps; Z80.0 Family history of malignant neoplasm of digestive organs | CPT/HCPCS: S0285 ==

== ENCOUNTER 2025-07-24 08:08 | Day surgery (SDC) | payer OTHER, MEDICARE, SELFPAY ==
[2025-07-24 08:25] VITALS: BP 159/84; PULSE 58; RESP 14; TEMP 36.1; O2SAT 99
[2025-07-24] MEDS: Lactated Ringers 1,000 ML 80 ML IV (08:54)
--- NOTE | 2025-07-24 09:07 | W.ANESPRE ---
General Info Date of Service Date Performed: 07/24/25 Height: 6 ft Weight: 93.1 kg Body Mass Index (BMI): 27.8 Surgical Procedure: Operation Date: 07/24/25 09:05 Proposed Procedure Side Surgeon michelle Ospina MD Meds Allergies and Home Medications Allergies Allergy/AdvReac Type Severity Reaction Status Date / Time Penicillins Allergy Intermediate Swelling/Ed Verified 07/24/25 08:33 tressa Home Medication Medication Instructions Recorded atorvastatin 10 mg tablet (Lipitor) 10 mg PO DAILY 07/04/25 bisacodyl 5 mg tablet,delayed 5 mg PO ONCE #4 tabs 07/04/25 release (Dulcolax (bisacodyl)) polyethylene glycol 3350 17 17 g PO ONCE #238 grams 07/04/25 gram/dose oral powder tamsulosin 0.4 mg capsule 0.4 mg PO DAILY 07/04/25 cholecalciferol (vitamin D3) 50 2,000 unit PO DAILY 07/22/25 mcg (2,000 unit) tablet (Thera-D) Current Visit Medications: Current Medications Generic Name Dose Route Start Last Admin Trade Name Freq PRN Reason Stop Dose Admin Ringer's Solution 1,000 mls @ 80 mls/hr 07/24/25 06:00 07/24/25 08:54 IV 07/24/25 23:59 80 mls/hr INFUSION JOSIAH Administration IV Miscellaneous Supplies 1 each 07/24/25 06:00 Iv Access IV 07/24/25 23:59 DIRECTED JOSIAH Sodium Chloride 0 ml 07/24/25 06:00 Normal Saline Flush 10 Ml Syr IV 07/24/25 23:59 PRN PRN Sodium Chloride 0 ml 07/24/25 06:00 Normal Saline 10 Ml Vial IJ 07/24/25 23:59 DIRECTED PRN Sterile Water 0 ml 07/24/25 06:00 Water,Injection,Sterile 10 Ml Vial IJ 07/24/25 23:59 DIRECTED PRN PFSH Active Problems Active Problems: Problem Status Onset Code Elevated PSA Acute R97.20 Thyroid nodule Chronic E04.1 Contusion of right chest wall Acute S20.211A Syncope Acute ~05/2023 R55 Chronic night sweats Chronic R61 Former cigarette smoker Chronic Z87.891 Sigmoid diverticulosis Chronic K57.30 Hyperlipidemia Chronic E78.5 Osteoarthritis of both knees Chronic M17.0 COPD (chronic obstructive pulmonary disease) Chronic J44.9 Medical History Medical History Colon cancer Tubular adenoma of colon Tubulovillous adenoma of colon Alcohol use disorder Surgical History Surgical History S/P vasectomy S/P colonoscopy (2021) Tobacco Smoking/Tobacco Use Status: Former Tobacco Use Passive smoking exposure: Yes Second hand exposure: Yes Alcohol Alcohol Intake: current Alcohol intake frequency: 0-2 drinks per day Alcohol type: beer Substance Use Substance use: Rarely Substance use type: marijuana Vital Signs and Lab Results Vital Signs Most Recent Vital Signs in EMR: Most Recent Vital Signs Temp Pulse Resp BP Pulse Ox 36.1 C L 58 L 14 159/84 H 99 07/24/25 08:25 07/24/25 08:25 07/24/25 08:25 07/24/25 08:25 07/24/25 08:25 Imaging and Studies Imaging and Studies Study information below may be from another EMR and interpreted by another provider. Please see original notes in EMR for more complete details. EKG Summary: 06/03/23: Exam: Resting ECG Reason for Exam: syncope Patient Location: E HR:68 bpm ECG Measurements Heart Rate 68 AXIS TX 172 P 51 QRSd 103 QRS 27 QT 391 T30 QTc 417 Conclusion Sinus rhythm...normal P axis, V-rate 60- 99 Normal [place] Normal Electrocardiogram I have reviewed and I agree with the emergency room physician's ECG interpretation. Stress Test Summary: 06/27/23: Stress ECG Conclusion 1. Resting electrocardiogram was within normal limits 2. Patient exercised on the John protocol and completed a workload of 7.57 METS, limited by fatigue 3. Normal heart rate and blood pressure response to exercise. The patient achieved 88% of predicted heart rate for age 4. There was no electrocardiographic evidence of myocardial ischemia 5. There were no significant dysrhythmias Hull Treadmill Score is 6 which is Low risk. Echocardiogram Summary: 06/22/23: Conclusion Normal left ventricular wall thickness and chamber size. Ejection fraction is 55 to 60%. Wall motion is normal Normal right ventricular size and systolic function Both atria are normal in size Trileaflet aortic valve with trace regurgitation Right ventricular systolic pressure could not be estimated Anesthesia Assessment and Plan Anesthesia History Personal History: No History of Anesthesia Complications Family History: No Family History of Anesthesia Complications Exercise Tolerance Exercise Tolerance: Metabolic Equivalents>4 Cardiac & Pulmonary Exam Cardiac Exam: Normal S1/S2 Heart Sounds Pulmonary Exam: Clear Bilateral Breath Sounds Implantable Cardiac Device Does patient have a Pacemaker or an ICD?: No Airway Exam Known Difficult Airway: No Mallampati Class: 2 Mouth Opening: Normal (> 3cm) Thyromental Distance: Greater than 3 cm Neck Range of Motion: Full ROM Neck Circumference: Normal Teeth Condition: Normal Dentition ASA Classification ASA Score: ASA 3 Emergency Case?: No NPO Status NPO Status: NPO Clears >2 hours, Solids >8 hours Anesthesia Plan Resuscitation Status: Full Code Anesthesia Technique: General Anesthesia Airway Planned: Natural Airway Monitors Used: Standard Monitors
[2025-07-24 09:09] VITALS: BMI 27.8
--- NOTE | 2025-07-24 09:53 | BOWEL_PTH ---
PATIENT: John Woodson LOC: ANGI U#:[id number] AGE/SX: 70/M ROOM: RE07/24/[address]: Luly Ospina : 1955 BED: DIS: 07/24/2025 SPEC #: [id number] RECD: 07/24/25 12:25 STATUS: LYDIA TAYLOR #: [id number] SHUBHAM: 07/24/25 09:[address]: Luly Ospina DEPT: Surgical Specimen RECD BY: Nori Garcia ENTERED: 07/24/25 12:25 SP TYPE: Bowel OTHR DR: ARCHIE Jose Tissues: 1 - BIOPSY BOWEL Procedures: GROSS AND MICRO LEVEL 4 Comments: [id number]
[2025-07-24 10:12] VITALS: BP 93/57; PULSE 53; RESP 16; TEMP 36.2; O2SAT 95
--- NOTE | 2025-07-24 10:13 | W.PM.DSUDISC ---
Date of service: 07/24/25 Discharge Plan Disposition Patient Disposition: Home Condition: Good Discharge Details Reason For Visit: Surveillance colonoscopy due to hx of polyps Attending Provider: Luly Ospina Primary Care Provider: Lidia Willard Recommendations for Follow Up Recommended tests to be ordered by follow up provider: Follow up pathology Home Meds and New Rx's Prescriptions: Continued atorvastatin [Lipitor] 10 mg tablet 10 mg PO DAILY tamsulosin 0.4 mg capsule 0.4 mg PO DAILY cholecalciferol (vitamin D3) [Thera-D] 50 mcg (2,000 unit) tablet 2,000 unit PO DAILY Discontinued bisacodyl [Dulcolax (bisacodyl)] 5 mg tablet,delayed release (DR/EC) 5 mg PO ONCE Qty: 4 0RF Rx Instructions: Take per colonoscopy instructions provided by ordering providers office polyethylene glycol 3350 17 gram/dose powder 17 g PO ONCE Qty: 238 0RF Rx Instructions: Take per colonoscopy instructions provided by ordering providers office Discharge Instructions Additional Instructions: Your colonoscopy went well today. You did have one polyp that was removed and will be sent to pathology. We will contact you once those results return and when the recommendation would be for a repeat colonoscopy. Please contact the general surgery office if you have further questions or concerns. 1. If tolerated, consume a soft, low fiber diet for 1-2 days. 2. Do not drive, drink alcohol, operate machinery, make critical decisions, or do activities that require coordination or balance for 24 hours. 3. Because air was put into your colon during the procedure, expelling air from your rectum (passing gas or farting) is normal. 4. You may not have a bowel movement for 1-3 days because of the colonoscopy prep. This is normal. 5. Go directly to the emergency room if you notice any of the following: Develop chills (warm to touch), or if you have a thermometer and your temperature is above 101 Difficulty breathing or difficultly swallowing Persistent vomiting Severe abdominal pain, other than gas cramps Severe chest pain Black, tarry stools Any bleeding – exceeding one tablespoon 6. Call your physician if the site where your intravenous was started becomes red, swollen, painful, and warm to touch. 7. Your physician has reviewed your pre-procedure medications. Please continue to take those medications as previously ordered. You will be given specific information/education regarding any changes to your medications before leaving. Stand Alone Forms: Portal Information Activity:: Activity as Tolerated Diet:: As Tolerated Discharge Orders Discharge Orders: Discharge Order (Routine); Ordered 07/24/25 Ordered By: Luly Osipna
--- NOTE | 2025-07-24 10:20 | W.COLOREPORT ---
Date of service: 07/24/25 Time of Service: 10:20 Colonoscopy Report Date of procedure: 07/24/25 Pre-op diagnosis general: Personal history of polyps Post-op diagnosis procedure note: same Procedure: Colonoscopy with polypectomy Surgeon: Luly Ospina Anesthesia Type: General:No Airway Estimated blood loss (mL): 1 Pathology: other (Polyp at 85cm ) Complications: None Disposition: PACU Indications: Patient is a 70 yo male who presents for colonoscopy given personal history of polyps. Prep: Miralax/Dulcolax Procedure Start Time: 09:28 Procedure End Time: 10:03 Retraction Time: 26 Findings: Visualization of colon difficulty due to prep. Colon polyp removed with cold forceps at 85cm. Procedure Description: The patient was brought to the endoscopy suite and placed in the left lateral decubitus position. After induction of IV sedation, a digital rectal exam was performed. Digital exam was normal. The colonoscope was then passed to the cecum without difficulty. Cecal intubation was confirmed by the identification of the appendiceal orifice and the ileocecal valve. Upon withdrawing the colonoscope, all mucosal surfaces were inspected. The prep was noted to have profuse bubbles making visualization difficult. At 85cm there was a small polyp, which was removed using cold forceps. Specimen was retrieved for pathological analysis. Retroflexion in the rectum was unremarkable. The patient tolerated the procedure well with no complications. Postoperatively, the patient was transferred to the recovery room in stable condition. [place] Bowel Prep [place] Bowel Prep Right Colon: 2 Left Colon: 2 Transverse Colon: 2 Total Score: 6
--- NOTE | 2025-07-24 10:27 | W.ANESPOSTOP ---
Postoperative Evaluation Date, Time and Location Date Performed: 07/24/25 Time Performed: 10:27 Patient Location: Day Surgery Unit Vital Signs Most Recent Imported Vital Signs: Most Recent Vital Signs Temp Pulse Resp BP Pulse Ox 36.2 C L 53 L 16 93/57 L 95 07/24/25 10:12 07/24/25 10:12 07/24/25 10:12 07/24/25 10:12 07/24/25 10:12 Pain Score Most Recent Pain Score: Most Recent Pain Score Pain Level 0 07/24/25 10:12 Assessment Mental Status: Awake (Alert & Oriented to Patient Baseline) Airway and Respiratory Function: Patent airway with normal (patient baseline) respiratory exam Cardiovascular Function: Hemodynamically Stable Hydration Status: Adequately Hydrated Nausea & Vomiting: No Nausea or Vomiting Pain: Pt. Denies Any Pain Peripheral Nerve Block: Patient did not receive a nerve block
[2025-07-24 10:40] VITALS: BP 129/76; PULSE 47; RESP 16; TEMP 36.2; O2SAT 95
== END 2025-07-24 10:57 | disposition home or self-care (01) ==
PROVIDERS: PCP Nurse Practitioner Family; Visit Provider Student in an Organized Health Care Education/Training Program
PROC: 0DJD8ZZ Inspection of Lower Intestinal Tract, Via Natural or Artificial Opening Endoscopic (ICD-10-PCS; CPT 45378; principal; 2025-07-24 09:00)
DX: Z12.11 Encounter for screening for malignant neoplasm of colon (principal); D12.3 Benign neoplasm of transverse colon
CPT/HCPCS: 45380; 88305; J2003; J2704